=== PATIENT | male | born 1995 | race Caucasian/White ===

== ENCOUNTER 2018-02-08 13:18 | Emergency (ER) | END 2018-02-08 15:38 | disposition home or self-care (01) ==

== ENCOUNTER 2018-10-11 14:58 | Emergency (ER) | payer BC ==
[~2018-10-11] VITALS: Wt 71.0 kg
[~2018-10-11 14:58] MED LIST: AMOX1TAB10 PO; MED4DP PO; NAPR-985 PO
[2018-10-11 15:18] VITALS: BP 139/70; PULSE 66; RESP 18
--- NOTE | 2018-10-11 15:43 | ERD ---
ER Documentation Chief Complaint Chief Complaint COUGH X 1 WEEK HPI 23-year-old male, with a history of HIV and mild intermittent asthma, presents to the emergency department, complaining of cough for 1 week, associated with yellowish sputum. No fever, no shortness of breath, no chills. The patient has been using his inhaler with adequate control of the symptoms. ROS All systems reviewed and are negative except as per history of present illness. Medications Home Meds Active Scripts Promethazine HCl/Codeine (Prometh-Codein 6.25-10 mg/5 ml) 5 Ml Syrup, 10 ML PO QHS for 5 Days, #60 ML Prov:AD HAMMER MD 10/11/18 Prednisone* (Prednisone*) 20 Mg Tab, 40 MG PO DAILY for 5 Days, TAB Prov:AD HAMMER MD 10/11/18 Albuterol Sulfate* (Proair HFA*) 8.5 Gm Hfa.aer.ad, 2 PUFF INH Q4H PRN for WHEEZING AND SOB, #1 INHALER Prov:AD HAMMER MD 10/11/18 Amoxicillin* (Amoxicillin*) 500 Mg Cap, 500 MG PO TID for 7 Days, CAP Prov:AD HAMMER MD 10/11/18 Azithromycin* (Zithromax*) 250 Mg Tablet, 250 MG PO .ZPACK DIRECTED, #6 TAB TAKE 500 MG (2 TABS) THE FIRST DAY THEN 250 MG (1 TAB) DAYS 2-5 Prov:AD HAMMER MD 10/11/18 Naproxen* (Naprosyn*) 500 Mg Tablet, 500 MG PO BID PRN for PAIN AND/OR INFLAMMATION, #30 TAB Prov:MICHAEL KWONG PA-C 02/08/18 Methylprednisolone* (Medrol* DOSE PACK) 4 Mg/Dose-Pack Tab.ds.pk, 4 MG PO . DIRECTED, #1 PACKET Prov:MICHAEL KWONG PA-C 02/08/18 Amoxicillin/Potassium Clav (Amox-Clav 875-125 mg Tablet) 875-125 mg Tab, 1 TAB PO BID for 10 Days, #20 TAB Prov:MICHAEL KWONG PA-C 02/08/18 Allergies Allergies: Coded Allergies: No Known Allergy (Unverified , 07/03/14) PMhx/Soc History of Surgery: No Anesthesia Reaction: No Hx Neurological Disorder: No Hx Respiratory Disorders: No Hx Cardiac Disorders: No Hx Psychiatric Problems: No Hx Miscellaneous Medical Probl: Yes (HIV ) Hx Alcohol Use: No Hx Substance Use: No Hx Tobacco Use: No FmHx Family History: No diabetes, No coronary disease Physical Exam Vitals Vital Signs Date Temp Pulse Resp B/P (MAP) Pulse Ox O2 O2 Flow FiO2 Time Delivery Rate 10/11/18 98.0 66 18 139/70 99 15:18 (93) Physical Exam Const: No acute distress Head: Atraumatic Eyes: Normal Conjunctiva ENT: Normal External Ears, Nose and Mouth. Neck: Full range of motion. No meningismus. Resp: Rhonchi but no wheezing to auscultation bilaterally Cardio: Regular rate and rhythm, no murmurs Abd: Soft, non tender, non distended. Normal bowel sounds Skin: No petechiae or rashes Back: No midline or flank tenderness Ext: No cyanosis, or edema Neur: Awake and alert Psych: Normal Mood and Affect Procedures/MDM At the time of discharge, patient with nontoxic appearance, vital signs stable, no respiratory distress. Differential diagnosis include but not limited to: upper vs lower respiratory infection bacterial/viral/fungal. Asthma, COPD, pneumonitis, allergies, GERD. Less likely pulmonary embolism, cardiac related or malignancy, but still is a possibility. Physical examination and clinical presentation consistent most likely with viral infection with high risk for superimposed bacterial infection due to history of HIV and asthma, at this time, patient afebrile, good oxygen saturation, I will give a prescription for antibiotics prophylactically. During the ED course the patient remained stable, no new complaints. Treatment options and clinical impression discussed with the patient who agrees with management. The patient is stable to be treated outpatient and will be discharged home. Some side effects of prescribed medications (headache, rash, nausea, vomiting, diarrhea, interactions with other medications) were reviewed. The patient needs to follow up with the primary care provider in the next 48h. If symptoms persist, worsen or new symptoms develop, then patient should return to the ED immediately. Disclaimer: Inadvertent spelling and grammatical errors are likely due to EHR/dictation software use and do not reflect on the overall quality of patient care. Also, please note that the electronic time recorded on this note does not necessarily reflect the actual time of the patient encounter. Departure Diagnosis: Primary Impression: Cough Additional Impression: Mild intermittent asthma Condition: Stable Additional Instructions: Thank you very much for allowing us to participate in your care. Your health and safety is our top priority at [facility]. The evaluation in the emergency department has been done to rule out an acute emergency. Chronic, [id number] conditions may have not been evaluated; therefore, you need to follow up with a primary care provider in the next 48h. If symptoms persist, worsen or new symptoms develop, then patient should return to the ED immediately. Call your primary care doctor TOMORROW for an appointment during the next 2-4 days and bring all the information provided. Have prescriptions filled and follow precisely the directions on the label. If the symptoms get worse and your provider is unavailable, return to the Emergency Department immediately. AD HAMMRE MD Oct 11, 2018 15:43
[2018-10-11] MEDS ORDERED: PRED20TA PO (15:48)
[2018-10-11] MEDS ORDERED: ALBU8.5H8 INH (15:48)
[2018-10-11] MEDS ORDERED: PROM5SYR2 PO (15:48)
[2018-10-11] MEDS ORDERED: AMOX500C2 PO (15:48)
[2018-10-11] MEDS ORDERED: AZIT250T PO (15:48)
== END 2018-10-11 15:50 | disposition home or self-care (01) ==
LOC: E/R 14:58
DX: J45.21 Mild intermittent asthma with (acute) exacerbation (principal); Z21 Asymptomatic human immunodeficiency virus [HIV] infection status
CPT/HCPCS: 99283